=== PATIENT | female | born 1940 | race African-American/Black ===

== ENCOUNTER 2019-05-23 12:20 | Inpatient (IN) | payer MEDICAID ==
[~2019-05-23] VITALS: Ht 165.1 cm; Wt 69.2 kg
[~2019-05-23 12:20] MED LIST: LISI-604 PO
[2019-05-23] MEDS ORDERED: ASPIRIN 81MG TABLET PO ONE (14:15)
[2019-05-23 14:40] LABS: BASOPHILS % 0.9 % (0.0-2.0); EOSINOPHILS % 2.9 % (0.0-5.0); HEMATOCRIT. 40.3 % (36.0-48.0); HEMOGLOBIN. 14.2 g/dL (12.0-16.0); LYMPHOCYTES % 35.9 % (20.0-50.0); MEAN CORPUSCULAR HEMOGLOBIN 32.7 pg (28.0-32.0); MEAN PLATELET VOLUME 8.3 fl (7.4-10.4); NEUTROPHILS % 51.3 % (40.0-76.0); PLATELET 225 x1000/uL (130-400); RED BLOOD CELL COUNT 4.34 mill/uL (4.2-5.4); RED CELL DISTRIBUTION WIDTH 12.6 % (11.6-14.6)
[2019-05-23 14:48] LABS: CHLORIDE 100 mEq/L (98-107)
[2019-05-23 21:10] VITALS: BP 140/78
[2019-05-23 21:30] VITALS: BP 140/78
[2019-05-23] MEDS ORDERED: NITROGLYCERIN 0.4MG TABLET SL SL PRN (22:30)
[2019-05-23] MEDS ORDERED: ACETAMINOPHEN 325MG TABLET PO PRN (22:30)
[2019-05-23] MEDS ORDERED: NITR0.4T49 SL (22:45)
[2019-05-23] MEDS ORDERED: CALC-38 PO (22:45)
[2019-05-23] MEDS ORDERED: AMLO10TA80 MT (22:49)
[2019-05-23] MEDS ORDERED: VALS320T16 MT (22:49)
[2019-05-23] MEDS ORDERED: OMEP20CA5 MT (22:49)
[2019-05-23] MEDS ORDERED: OLOP2.5D6 EACHEYE (22:49)
[2019-05-23] MEDS ORDERED: LORA10TA7 MT (22:49)
[2019-05-23] MEDS ORDERED: ASPI-986 MT (22:49)
[2019-05-24] VITALS: BP 134/77
[2019-05-24 01:25] LABS: CREATINE KINASE 68 IU/L (26-192)
[2019-05-24 01:27] LABS: CREATINE KINASE MB FRACTION < 1.0 ng/mL (0.5-3.6)
[2019-05-24 04:00] VITALS: BP 122/74
[2019-05-24 06:50] LABS: EOSINOPHILS % 2.7 % (0.0-5.0); HEMATOCRIT. 39.3 % (36.0-48.0); HEMOGLOBIN. 13.7 g/dL (12.0-16.0); LYMPHOCYTES % 35.5 % (20.0-50.0); MEAN CORPUSCULAR HEMOGLOBIN 32.6 pg (28.0-32.0); MEAN CORPUSCULAR VOLUME 93.4 fL (81.0-99.0); MEAN PLATELET VOLUME 8.1 fl (7.4-10.4); MONOCYTES % 9.9 % (2.0-8.0); NEUTROPHILS % 50.9 % (40.0-76.0); PLATELET 223 x1000/uL (130-400); RED BLOOD CELL COUNT 4.21 mill/uL (4.2-5.4); RED CELL DISTRIBUTION WIDTH 12.5 % (11.6-14.6)
[2019-05-24 06:52] LABS: CHLORIDE 106 mEq/L (98-107)
[2019-05-24] MEDS ORDERED: OMEPRAZOLE 20MG CAPSULE EXTENDED RELEASE PO SCH (07:10)
[2019-05-24 07:26] LABS: LDL CHOLESTEROL 106 mg/dL (5-100)
[2019-05-24 07:28] LABS: CREATINE KINASE 65 IU/L (26-192)
[2019-05-24 07:29] LABS: HDL CHOLESTEROL 35 mg/dL (40-59)
[2019-05-24 07:31] LABS: CREATINE KINASE MB FRACTION < 1.0 ng/mL (0.5-3.6)
[2019-05-24 08:00] VITALS: BP 138/78
[2019-05-24] MEDS ORDERED: ASPIRIN 81MG TABLET PO SCH (09:00)
[2019-05-24] MEDS ORDERED: LORATADINE 10MG TABLET PO SCH (09:00)
[2019-05-24] MEDS ORDERED: LOSARTAN POTASSIUM 100 MG TABLET PO SCH (09:00)
[2019-05-24] MEDS ORDERED: NAPHAZOLINE HCL/PHENIR MAL OPHTH SOLN 15ML BOTHEYE SCH (09:00)
[2019-05-24] MEDS ORDERED: ENOXAPARIN 40MG/0.4ML SYR SUBCUT SCH (09:00)
[2019-05-24] MEDS ORDERED: AMLODIPINE 10MG TABLET PO SCH (10:30)
[2019-05-24 12:00] VITALS: BP 131/76
[2019-05-24 15:28] VITALS: BP 141/71
[2019-05-24] MEDS ORDERED: ATORVASTATIN CALCIUM 10MG TABLET PO SCH (21:00)
== END 2019-05-24 16:35 | disposition home or self-care (01) | DRG 203 ==
LOC: ER 12:20 → 8WST 16:57 → EDBEDREQ 17:10 → EDBEDREQTM 17:10 → ENRESERV 19:34
PROVIDERS: ADMIT Internal Medicine; ATTEND Internal Medicine
DX: R07.89 Other chest pain (principal); E87.1 Hypo-osmolality and hyponatremia; K21.9 Gastro-esophageal reflux disease without esophagitis; E78.5 Hyperlipidemia, unspecified; I10 Essential (primary) hypertension; Z82.49 Family history of ischemic heart disease and other diseases of the circulatory system
CPT/HCPCS: 36415; 71045; 80048; 80061; 82550; 82553; 83880; 84484; 93005; 99285; J1650

== ENCOUNTER 2022-11-07 14:48 | Emergency (ER) | payer MEDICAID ==
[~2022-11-07] VITALS: Ht 152.4 cm; Wt 80.0 kg
[~2022-11-07 14:48] MED LIST changes: +AMLO10TA80 MT; +ASPI-986 MT; +CALC-38 PO; -LISI-604 PO; +LORA10TA7 MT; +NITR0.4T49 SL; +OLOP2.5D15 EACHEYE; +OMEP20CA14 MT; +VALS320T16 MT
[2022-11-07 14:52] VITALS: BP 204/94
[2022-11-07 16:04] LABS: BASOPHILS % 0.5 % (0.0-2.0); EOSINOPHILS % 3.9 % (0.0-5.0); HEMATOCRIT. 41.5 % (36.0-48.0); LYMPHOCYTES % 23.5 % (20.0-50.0); MEAN CORPUSCULAR HEMOGLOBIN 32.4 pg (28.0-32.0); MEAN PLATELET VOLUME 7.4 fl (7.4-10.4); MONOCYTES % 8.1 % (2.0-8.0); PLATELET 248 x1000/uL (130-400); RED BLOOD CELL COUNT 4.32 mill/uL (4.2-5.4); RED CELL DISTRIBUTION WIDTH 13.9 % (11.6-14.6)
[2022-11-07 16:15] LABS: CHLORIDE 95 mEq/L (98-107)
[2022-11-07 17:57] LABS: CLARITY URINE CLEAR (CLEAR); COLOR URINE YELLOW (YELLOW); KETONES URINE NEGATIVE (NEGATIVE); LEUKOCYTE ESTERASE URINE TRACE (NEGATIVE); NITRITE URINE NEGATIVE (NEGATIVE); OCCULT BLOOD URINE NEGATIVE (NEGATIVE); PROTEIN URINE NEGATIVE (NEGATIVE); SPECIFIC GRAVITY URINE 1.009 (1.005-1.030); UROBILINOGEN URINE 0.2 E.U./dL (0.2-1.0)
== END 2022-11-07 18:49 | disposition home or self-care (01) ==
LOC: ER 14:48
DX: E87.1 Hypo-osmolality and hyponatremia (principal); R05.9 Cough, unspecified; B34.9 Viral infection, unspecified; I10 Essential (primary) hypertension; Z79.899 Other long term (current) drug therapy
CPT/HCPCS: 36415; 71045; 80053; 81003; 83880; 84484; 85025; 87804; 99284